=== PATIENT | male | born 1965 | race African-American/Black ===

== ENCOUNTER 2019-05-31 07:58 | Emergency (ER) | payer SELFPAY ==
[2019-05-31] MEDS ORDERED: cefTRIAXone\\ROCEPHIN 250 MG VIAL ONE (08:33)
[2019-05-31] MEDS ORDERED: Azithromycin 250 MG TAB ONE (08:33)
[2019-05-31] MEDS ORDERED: Lidocaine 1% PF 5 ML VIAL ONE (08:33)
[2019-06-01 21:22] LABS: Chlam.trachomatis by PCR,Urine Not Detected (NotDetected)
== END 2019-05-31 09:00 | disposition home or self-care (01) ==
LOC: ERS 07:58
DX: R36.9 Urethral discharge, unspecified (principal)
CPT/HCPCS: 87491; 87591; 96372; 99283; J0696; J2001

== ENCOUNTER 2021-07-02 09:11 | Emergency (ER) | payer SELFPAY ==
[2021-07-02] MEDS ORDERED: Ketorolac Tromethamine 30 MG/ML VIAL ONE (09:31)
[2021-07-02 09:45] LABS: #Eosinphils 0.2 thou/uL (0.0-0.7); #Lymphocytes 1.5 thou/uL (1.20-3.40); #Monocytes 0.5 thou/uL (0.11-0.59); %Basophils 1.3 % (0.0-1.0); %Eosinophils 6.5 % (0.0-10.0); %Lymphocytes 46.9 % (21.0-51.0); %Monocytes 14.3 % (0.0-10.0); Hemoglobin 13.9 g/dL (14.0-18.0); Mean Corpuscular HGB CONC 33.3 g/dL (32.0-36.0); Mean Corpuscular Hemoglobin 32.3 pg (27.0-31.0); Platelet Count 168 thou/uL (130-400); RBC Distribution Width 12.6 % (11.5-14.5); Red Blood Cell (RBC) Count 4.31 mill/uL (4.70-6.10); White Blood Cell (WBC) Count 3.3 thou/uL (4.8-10.8)
[2021-07-02 10:03] LABS: ALT (SGPT) 25 U/L (8-55); AST (SGOT) 25 U/L (5-34); Albumin 3.8 g/dL (3.5-5.0); Alkaline Phosphatase 75 U/L (40-110); Anion Gap 12 mmol/L (10-20); BUN (Urea Nitrogen) 11 mg/dL (8.4-25.7); Bilirubin, Total 0.2 mg/dL (0.2-1.2); Calc. Creatinine Clearance 0 mL/min (70-130); Calcium 8.3 mg/dL (7.8-10.44); Carbon Dioxide 21 mmol/L (22-29); Chloride 113 mmol/L (98-107); Globulin 2.7 g/dL (2.4-3.5); Glucose 94 mg/dL (70-105); Potassium 4.2 mmol/L (3.5-5.1); Protein, Total 6.5 g/dL (6.0-8.3); Sodium 142 mmol/L (136-145)
== END 2021-07-02 10:29 | disposition home or self-care (01) ==
LOC: ERS 09:11
DX: R07.89 Other chest pain (principal); F17.200 Nicotine dependence, unspecified, uncomplicated
CPT/HCPCS: 36415; 71045; 80053; 84484; 85025; 93005; 96372; J1885

== ENCOUNTER 2021-07-29 16:50 | Inpatient (IN) | payer OTHER, SELFPAY ==
[~2021-07-29 16:50] MED LIST: Iopamidol-370 76% 500 ML 1 ML ONE
[2021-07-29 17:32] LABS: #Basophils 0.1 thou/uL (0.0-0.2); #Eosinphils 0.1 thou/uL (0.0-0.7); #Lymphocytes 2.4 thou/uL (1.20-3.40); #Monocytes 0.6 thou/uL (0.11-0.59); %Basophils 1.2 % (0.0-1.0); %Eosinophils 2.8 % (0.0-10.0); %Lymphocytes 46.6 % (21.0-51.0); %Neutrophils 38.4 % (42.0-75.0); Mean Corpuscular Hemoglobin 32.1 pg (27.0-31.0); Mean Corpuscular Volume 94.4 fL (78.0-98.0); Mean Platelet Volume 6.6 fL (7.4-10.4); Platelet Count 233 thou/uL (130-400); RBC Distribution Width 12.2 % (11.5-14.5); Red Blood Cell (RBC) Count 4.68 mill/uL (4.70-6.10); White Blood Cell (WBC) Count 5.2 thou/uL (4.8-10.8)
[2021-07-29 17:52] LABS: ALT (SGPT) 39 U/L (8-55); AST (SGOT) 41 U/L (5-34); Albumin 4.3 g/dL (3.5-5.0); Alcohol 299 mg/dL (Less than 10); Alkaline Phosphatase 75 U/L (40-110); Anion Gap 19 mmol/L (10-20); BUN (Urea Nitrogen) 7 mg/dL (8.4-25.7); Bilirubin, Total 0.2 mg/dL (0.2-1.2); Calc. Creatinine Clearance 0 mL/min (70-130); Calcium 8.7 mg/dL (7.8-10.44); Carbon Dioxide 20 mmol/L (22-29); Chloride 107 mmol/L (98-107); Globulin 3.3 g/dL (2.4-3.5); Glucose 93 mg/dL (70-105); Potassium 3.8 mmol/L (3.5-5.1); Protein, Total 7.6 g/dL (6.0-8.3); Sodium 142 mmol/L (136-145)
[2021-07-29] MEDS ORDERED: Lorazepam 2 MG/ML VIAL ONE (19:01)
[2021-07-29] MEDS ORDERED: hydrALAZINE 20 MG/ML VIAL SLOW IVP PRN (21:51)
[2021-07-29] MEDS ORDERED: Morphine 4 MG/ML VIAL SLOW IVP PRN ×2 (21:51)
[2021-07-29] MEDS ORDERED: Ondansetron PF 4 MG/2 ML Vial IVP PRN (21:51)
[2021-07-29] MEDS ORDERED: Dextrose 50% Abboject 50 ML SYRINGE SLOW IVP PRN (21:51)
[2021-07-29] MEDS ORDERED: Dextrose 5% in Water 1,000 ML IV PRN (21:51)
[2021-07-29 21:55] LABS: Magnesium 2.3 mg/dL (1.6-2.6); Phosphorus 3.9 mg/dL (2.3-4.7)
[2021-07-29 21:57] LABS: PTT 30.1 sec (22.9-36.1); Prothrombin Time 13.1 sec (12.0-14.7)
[2021-07-30 00:01] LABS: SARS-CoV-2 NAA Rapid Test DETECTED (NotDetected)
[2021-07-30 00:24] VITALS: BMI 25.2
[2021-07-30] MEDS: Sodium Chloride 0.9% 1,000 ML IV SCH ×4 (00:41→20:34)
[2021-07-30 06:22] LABS: #Eosinphils 0.1 thou/uL (0.0-0.7); #Lymphocytes 1.5 thou/uL (1.20-3.40); #Monocytes 0.6 thou/uL (0.11-0.59); #Neutrophils 3.4 thou/uL (1.40-6.50); %Basophils 0.3 % (0.0-1.0); %Eosinophils 1.3 % (0.0-10.0); %Lymphocytes 26.5 % (21.0-51.0); %Monocytes 10.3 % (0.0-10.0); %Neutrophils 61.6 % (42.0-75.0); Hemoglobin 13.8 g/dL (14.0-18.0); Mean Corpuscular HGB CONC 32.9 g/dL (32.0-36.0); Mean Corpuscular Hemoglobin 31.2 pg (27.0-31.0); Mean Corpuscular Volume 94.8 fL (78.0-98.0); Mean Platelet Volume 7.1 fL (7.4-10.4); Platelet Count 202 thou/uL (130-400); RBC Distribution Width 12.2 % (11.5-14.5); Red Blood Cell (RBC) Count 4.42 mill/uL (4.70-6.10); White Blood Cell (WBC) Count 5.6 thou/uL (4.8-10.8)
[2021-07-30 06:48] LABS: Anion Gap 18 mmol/L (10-20); BUN (Urea Nitrogen) 9 mg/dL (8.4-25.7); Calc. Creatinine Clearance 113 mL/min (70-130); Calcium 8.4 mg/dL (7.8-10.44); Carbon Dioxide 18 mmol/L (22-29); Chloride 110 mmol/L (98-107); Glucose 71 mg/dL (70-105); Magnesium 2.1 mg/dL (1.6-2.6); Phosphorus 3.1 mg/dL (2.3-4.7); Potassium 4.1 mmol/L (3.5-5.1); Sodium 142 mmol/L (136-145)
[2021-07-30] MEDS: Oxazepam 10 MG CAP PO SCH ×3 (06:51→22:20)
[2021-07-30] MEDS: Famotidine/PF 20 mg/2ml Vial SLOW IVP SCH ×2 (08:21→20:39)
[2021-07-30] MEDS: Thiamine 100 MG TAB PO SCH (08:53)
[2021-07-30] MEDS: Multivitamin W/ Minerals 1 TAB PO SCH (08:53)
[2021-07-30] MEDS: Folic Acid 1 MG TAB PO SCH (08:53)
[2021-07-30] MEDS ORDERED: Prevnar 13-Val Conj/PF 0.5 ML SYRINGE IM ONE (09:00)
[2021-07-30] MEDS ORDERED: FLU VACC QS2021-22(6MOS UP)/PF 60 MCG/0.5 ML SYRINGE IM ONE (09:00)
[2021-07-30] MEDS ORDERED: traMADol HCl 50 MG TAB PO PRN (10:03)
[2021-07-30] MEDS ORDERED: Cyclobenzaprine 10 MG TAB PO PRN (10:03)
[2021-07-30] MEDS ORDERED: Bisacodyl 10 MG SUPP PR PRN (10:03)
[2021-07-30] MEDS ORDERED: Gabapentin 300 MG CAP PO SCH (10:15)
[2021-07-30] MEDS: Acetaminophen 500 MG TAB PO SCH ×3 (10:24→22:57)
[2021-07-30] MEDS: traMADol HCl 50 MG TAB PO SCH ×3 (10:25→22:58)
[2021-07-30] MEDS: Gabapentin 300 MG CAP PO SCH ×2 (15:55→20:41)
[2021-07-30] MEDS: Senokot S 8.6-50 MG TAB PO SCH (20:40)
[2021-07-31] MEDS ORDERED: Morphine 4 MG/ML VIAL SLOW IVP PRN (00:06)
[2021-07-31] MEDS: Sodium Chloride 0.9% 1,000 ML IV SCH ×2 (05:27→14:38)
[2021-07-31] MEDS: Acetaminophen 500 MG TAB PO SCH ×4 (05:27→23:51)
[2021-07-31] MEDS: Oxazepam 10 MG CAP PO SCH ×3 (05:28→23:51)
[2021-07-31] MEDS: traMADol HCl 50 MG TAB PO SCH ×4 (05:28→23:51)
[2021-07-31] MEDS: Famotidine/PF 20 mg/2ml Vial SLOW IVP SCH ×2 (09:14→20:47)
[2021-07-31] MEDS: Multivitamin W/ Minerals 1 TAB PO SCH (09:14)
[2021-07-31] MEDS: Folic Acid 1 MG TAB PO SCH (09:14)
[2021-07-31] MEDS: Gabapentin 300 MG CAP PO SCH ×3 (09:14→20:47)
[2021-07-31] MEDS: Thiamine 100 MG TAB PO SCH (09:14)
[2021-07-31] MEDS: Senokot S 8.6-50 MG TAB PO SCH ×2 (09:14→20:47)
[2021-08-01] MEDS: traMADol HCl 50 MG TAB PO SCH ×4 (06:16→21:52)
[2021-08-01] MEDS: Oxazepam 10 MG CAP PO SCH ×3 (06:16→21:53)
[2021-08-01] MEDS: Acetaminophen 500 MG TAB PO SCH ×4 (06:17→21:53)
[2021-08-01 07:00] LABS: Anion Gap 11 mmol/L (10-20); BUN (Urea Nitrogen) 9 mg/dL (8.4-25.7); Calc. Creatinine Clearance 113 mL/min (70-130); Calcium 8.1 mg/dL (7.8-10.44); Carbon Dioxide 23 mmol/L (22-29); Chloride 108 mmol/L (98-107); Glucose 91 mg/dL (70-105); Potassium 3.9 mmol/L (3.5-5.1); Sodium 138 mmol/L (136-145)
[2021-08-01 07:31] LABS: Hemoglobin 11.9 g/dL (14.0-18.0); Mean Corpuscular HGB CONC 32.7 g/dL (32.0-36.0); Mean Corpuscular Hemoglobin 31.7 pg (27.0-31.0); Mean Corpuscular Volume 97.1 fL (78.0-98.0); Mean Platelet Volume 7.3 fL (7.4-10.4); Platelet Count 169 thou/uL (130-400); RBC Distribution Width 11.9 % (11.5-14.5); Red Blood Cell (RBC) Count 3.75 mill/uL (4.70-6.10); White Blood Cell (WBC) Count 3.4 thou/uL (4.8-10.8)
[2021-08-01 07:56] LABS: Band 2 % (5-11); Eosinophils 1 % (0-10); Lymphocytes 45 % (21-51); MDiff Complete? YES; Monocytes 5 % (0-10); Neutrophil 45 % (42-75); Platelet Morphology Comment Appears Adequate; RBC Morphology Normal; Reactive Lymphocytes 2 % (0-10)
[2021-08-01] MEDS: Senokot S 8.6-50 MG TAB PO SCH ×2 (09:55→21:47)
[2021-08-01] MEDS: Thiamine 100 MG TAB PO SCH (09:56)
[2021-08-01] MEDS: Gabapentin 300 MG CAP PO SCH ×3 (09:56→21:47)
[2021-08-01] MEDS: Multivitamin W/ Minerals 1 TAB PO SCH (09:57)
[2021-08-01] MEDS: Folic Acid 1 MG TAB PO SCH (09:57)
[2021-08-01] MEDS: Famotidine/PF 20 mg/2ml Vial SLOW IVP SCH (09:57)
[2021-08-01] MEDS: Enoxaparin Sodium 30 MG/0.3 ML SYRINGE SC SCH ×2 (09:57→21:48)
[2021-08-02] MEDS: Oxazepam 10 MG CAP PO SCH ×3 (04:50→21:18)
[2021-08-02] MEDS: Acetaminophen 500 MG TAB PO SCH ×3 (04:50→17:48)
[2021-08-02] MEDS: traMADol HCl 50 MG TAB PO SCH ×3 (04:51→17:49)
[2021-08-02 05:40] LABS: Anion Gap 10 mmol/L (10-20); BUN (Urea Nitrogen) 9 mg/dL (8.4-25.7); Calc. Creatinine Clearance 117 mL/min (70-130); Calcium 8.4 mg/dL (7.8-10.44); Carbon Dioxide 25 mmol/L (22-29); Chloride 106 mmol/L (98-107); Glucose 86 mg/dL (70-105); Phosphorus 3.4 mg/dL (2.3-4.7); Potassium 3.9 mmol/L (3.5-5.1); Sodium 137 mmol/L (136-145)
[2021-08-02] MEDS: Senokot S 8.6-50 MG TAB PO SCH ×2 (09:36→21:23)
[2021-08-02] MEDS: Gabapentin 300 MG CAP PO SCH ×3 (09:36→21:16)
[2021-08-02] MEDS: Enoxaparin Sodium 30 MG/0.3 ML SYRINGE SC SCH ×2 (09:36→21:16)
[2021-08-02] MEDS: Multivitamin W/ Minerals 1 TAB PO SCH (09:38)
[2021-08-02] MEDS: Folic Acid 1 MG TAB PO SCH (09:38)
[2021-08-02] MEDS: Thiamine 100 MG TAB PO SCH (09:38)
[2021-08-02] MEDS: traMADol HCl 50 MG TAB PO PRN ×2 (09:38→21:24)
[2021-08-03] MEDS: Acetaminophen 500 MG TAB PO SCH ×5 (00:01→17:51)
[2021-08-03] MEDS: traMADol HCl 50 MG TAB PO SCH ×4 (00:02→17:51)
[2021-08-03] MEDS: Oxazepam 10 MG CAP PO SCH ×3 (05:51→21:55)
[2021-08-03] MEDS: Senokot S 8.6-50 MG TAB PO SCH ×2 (08:46→21:55)
[2021-08-03] MEDS: Gabapentin 300 MG CAP PO SCH ×3 (08:46→21:54)
[2021-08-03] MEDS: Thiamine 100 MG TAB PO SCH (08:47)
[2021-08-03] MEDS: Folic Acid 1 MG TAB PO SCH (08:47)
[2021-08-03] MEDS: Enoxaparin Sodium 30 MG/0.3 ML SYRINGE SC SCH ×2 (08:47→21:54)
[2021-08-03] MEDS: Multivitamin W/ Minerals 1 TAB PO SCH (08:47)
[2021-08-03] MEDS: traMADol HCl 50 MG TAB PO PRN (08:48)
[2021-08-04] MEDS: Acetaminophen 500 MG TAB PO SCH ×4 (00:15→17:52)
[2021-08-04] MEDS: traMADol HCl 50 MG TAB PO SCH ×5 (00:15→22:24)
[2021-08-04] MEDS: Oxazepam 10 MG CAP PO SCH ×4 (05:59→22:24)
[2021-08-04] MEDS: Thiamine 100 MG TAB PO SCH (09:38)
[2021-08-04] MEDS: Senokot S 8.6-50 MG TAB PO SCH ×2 (09:38→22:24)
[2021-08-04] MEDS: Enoxaparin Sodium 30 MG/0.3 ML SYRINGE SC SCH ×2 (09:39→22:22)
[2021-08-04] MEDS: Folic Acid 1 MG TAB PO SCH (09:39)
[2021-08-04] MEDS: Multivitamin W/ Minerals 1 TAB PO SCH (09:39)
[2021-08-04] MEDS: Gabapentin 300 MG CAP PO SCH ×3 (09:39→22:23)
[2021-08-05] MEDS: Acetaminophen 500 MG TAB PO SCH ×5 (00:10→23:15)
[2021-08-05] MEDS: traMADol HCl 50 MG TAB PO SCH ×4 (06:06→23:15)
[2021-08-05] MEDS: Senokot S 8.6-50 MG TAB PO SCH ×2 (08:26→20:58)
[2021-08-05] MEDS: Gabapentin 300 MG CAP PO SCH ×3 (08:26→20:58)
[2021-08-05] MEDS: Folic Acid 1 MG TAB PO SCH (08:26)
[2021-08-05] MEDS: Oxazepam 10 MG CAP PO SCH ×2 (08:26→20:58)
[2021-08-05] MEDS: Thiamine 100 MG TAB PO SCH (08:26)
[2021-08-05] MEDS: Multivitamin W/ Minerals 1 TAB PO SCH (08:26)
[2021-08-05] MEDS: Enoxaparin Sodium 30 MG/0.3 ML SYRINGE SC SCH ×2 (08:28→20:58)
[2021-08-06] MEDS: Acetaminophen 500 MG TAB PO SCH ×3 (05:03→17:45)
[2021-08-06] MEDS: traMADol HCl 50 MG TAB PO SCH ×3 (05:03→17:44)
[2021-08-06] MEDS ORDERED: Oxazepam 10 MG CAP PO SCH (09:00)
[2021-08-06] MEDS: Enoxaparin Sodium 30 MG/0.3 ML SYRINGE SC SCH ×2 (09:57→21:31)
[2021-08-06] MEDS: Senokot S 8.6-50 MG TAB PO SCH ×2 (09:57→21:31)
[2021-08-06] MEDS: Gabapentin 300 MG CAP PO SCH ×3 (09:58→21:32)
[2021-08-06] MEDS: Folic Acid 1 MG TAB PO SCH (09:58)
[2021-08-06] MEDS: Thiamine 100 MG TAB PO SCH (09:58)
[2021-08-06] MEDS: Multivitamin W/ Minerals 1 TAB PO SCH (09:58)
[2021-08-06] MEDS: Oxazepam 10 MG CAP PO SCH (11:32)
[2021-08-06 16:33] LABS: SARS-CoV-2 PCR by NAA Not Detected (NotDetected)
[2021-08-07] MEDS: Acetaminophen 500 MG TAB PO SCH ×5 (00:21→23:56)
[2021-08-07] MEDS: traMADol HCl 50 MG TAB PO SCH ×5 (00:22→23:56)
[2021-08-07] MEDS: Folic Acid 1 MG TAB PO SCH (08:19)
[2021-08-07] MEDS: Gabapentin 300 MG CAP PO SCH ×3 (08:19→20:54)
[2021-08-07] MEDS: Thiamine 100 MG TAB PO SCH (08:19)
[2021-08-07] MEDS: Oxazepam 10 MG CAP PO SCH (08:19)
[2021-08-07] MEDS: Senokot S 8.6-50 MG TAB PO SCH ×2 (08:19→20:54)
[2021-08-07] MEDS: Multivitamin W/ Minerals 1 TAB PO SCH (08:19)
[2021-08-07] MEDS: Enoxaparin Sodium 30 MG/0.3 ML SYRINGE SC SCH ×2 (08:19→20:54)
[2021-08-08] MEDS: traMADol HCl 50 MG TAB PO SCH ×4 (05:30→23:32)
[2021-08-08] MEDS: Acetaminophen 500 MG TAB PO SCH ×4 (05:31→23:32)
[2021-08-08] MEDS: Multivitamin W/ Minerals 1 TAB PO SCH (09:16)
[2021-08-08] MEDS: Folic Acid 1 MG TAB PO SCH (09:16)
[2021-08-08] MEDS: Gabapentin 300 MG CAP PO SCH ×3 (09:16→20:25)
[2021-08-08] MEDS: Thiamine 100 MG TAB PO SCH (09:17)
[2021-08-08] MEDS: Oxazepam 10 MG CAP PO SCH (09:17)
[2021-08-08] MEDS: Senokot S 8.6-50 MG TAB PO SCH ×2 (09:17→20:25)
[2021-08-08] MEDS: Enoxaparin Sodium 30 MG/0.3 ML SYRINGE SC SCH ×2 (09:18→20:25)
[2021-08-09] MEDS: Acetaminophen 500 MG TAB PO SCH ×3 (05:31→16:15)
[2021-08-09] MEDS: traMADol HCl 50 MG TAB PO SCH ×3 (05:32→16:14)
[2021-08-09] MEDS: Gabapentin 300 MG CAP PO SCH ×2 (08:53→14:25)
[2021-08-09] MEDS: Folic Acid 1 MG TAB PO SCH (08:53)
[2021-08-09] MEDS: Thiamine 100 MG TAB PO SCH (08:53)
[2021-08-09] MEDS: Senokot S 8.6-50 MG TAB PO SCH (08:53)
[2021-08-09] MEDS: Multivitamin W/ Minerals 1 TAB PO SCH (08:54)
[2021-08-09] MEDS: Enoxaparin Sodium 30 MG/0.3 ML SYRINGE SC SCH (08:54)
[2021-08-09 16:10] VITALS: BP 106/65; TEMP 98.7
[2021-08-10] MEDS ORDERED: DULoxetine 30 MG CAP PO SCH (09:00)
== END 2021-08-09 18:01 | disposition home or self-care (01) | DRG 52 ==
LOC: ERS 16:50 → IMCU/EMU 21:49 → SURG A 07-30 16:13
PROVIDERS: ADMIT Surgery; ATTEND Surgery
PROC: 8E0ZXY6 Isolation (ICD-10-PCS; principal; 2021-07-29)
DX: S14.124A Central cord syndrome at C4 level of cervical spinal cord, initial encounter (principal); U07.1 COVID-19; S14.0XXA Concussion and edema of cervical spinal cord, initial encounter; W01.198A Fall on same level from slipping, tripping and stumbling with subsequent striking against other object, initial encounter; F17.210 Nicotine dependence, cigarettes, uncomplicated; R59.0 Localized enlarged lymph nodes; F10.129 Alcohol abuse with intoxication, unspecified; Y90.8 Blood alcohol level of 240 mg/100 ml or more; M62.81 Muscle weakness (generalized); M48.02 Spinal stenosis, cervical region; Z28.21 Immunization not carried out because of patient refusal
CPT/HCPCS: 36415; 36416; 70450; 70486; 70496; 71260; 72125; 72141; 72146; 72148; 74177; 80048; 80053; 80307; 83735; 84100; 85025; 85610; 85730; 93005; 96374; G0390; J1650; J2060; J2270; J7050; Q9967; S0028; U0002; U0003; U0005